=== PATIENT | male | born 1965 | race Caucasian/White ===

== ENCOUNTER 2020-10-12 09:41 | Emergency (ER) | payer OTHER, SELFPAY ==
[2020-10-12] VITALS (12 sets, daily range): BP systolic 125–173; BP diastolic 72–85; PULSE 66–77; RESP 13–18; TEMP 36.4; O2SAT 80–100
--- NOTE | 2020-10-12 09:30 | DI.CT_ITS ---
EXAM: CT RENAL COLIC WO CLINICAL HISTORY: Left flank pain. TECHNIQUE: Imaging Protocol: Axial computed tomography images with coronal and sagittal reformatted images were created and reviewed. COMPARISON: No exams were available for comparison FINDINGS: ABDOMEN: Lung Bases: Normal where visualized. Liver: There is diffuse decreased attenuation of the liver consistent with fatty infiltration. No me asurable mass. The liver is enlarged measuring 20 cm in length. Gallbladder and biliary tract: No radiodense calculus or biliary ductal dilation. Pancreas: Normal density, no abnormal calcifications or inflammatory process. Spleen: The spleen is enlarged measuring 19 cm in length. Kidneys: Normal size, contour and axis.There is a 4 mm stone in the mid left ureter causing mild-to-m oderate hydronephrosis. No masses seen. Adrenal glands: No mass is seen. Lymph nodes: Within normal limits. Abdominal Aorta: Abdominal portion non-dilated. PELVIS: Bladder:Symmetric distention, no gross wall thickening. Bowel: No obstruction or bowel wall thickening. Appendix is unremarkable. There is diverticulosis of the descending and sigmoid colon but no evidence of acute diverticulitis. Peritoneal cavity: No ascites, collection or mesenteric inflammatory response Reproductive organs: Mildly enlarged prostate gland. Bones: Within normal limits. Soft Tissues: Within normal limits. IMPRESSION: 1. 4 mm mid left ureteral stone causing [id number] left hydronephrosis. 2. Hepatosplenomegaly. 3. Fatty infiltration of the liver. RADIATION DOSE DELIVERED: 1,278.05mGy.cm Total DLP DATA REPOSITORY: All CT scans at this facility are submitted to the National Radiology Data Registry (NRDR) Dose Index Registry (DIR) with the [employer] (ACR). RADIATION OPTIMIZATION: All CT scans at this facility use at least one of these dose optimization te chniques: automated exposure control; mA and/or kV adjustment per patient size (includes targeted exa ms where dose is matched to clinical indication); or iterative reconstruction.
--- NOTE | 2020-10-12 09:51 | ED.GENADUL_ITS ---
Discharge Plan Disposition Patient Disposition: HOME Discharge Details Clinical Impression: Kidney stone on left side Primary Care Provider: None,None ED Provider: [facility] Home Meds and New Rx's Prescriptions: New tamsulosin 0.4 mg capsule 0.4 mg PO QHS 7 Days Qty: 7 RF: 0 ketorolac 10 mg tablet 10 mg PO TID PRN5 Days Qty: 15 RF: 0 Discharge Instructions Instructions: Kidney Stones (ED) Additional Instructions: Strain all urine. If you collect the stone may take it with you to urology appointment. You do have a 4 mm kidney stone noted on the left side. This should pass on its own. Take medications as prescribed. Follow-up with urology in 1 to 2 weeks sooner if no better. Follow up with primary care provider in 3-5 days. Return to ED sooner if any worsening or concerns. Increase oral fluids. Please take Tylenol or Ibuprofen with food every 4-6 hours as needed for pain and swelling. Stand Alone Forms: Work Release Referrals: Iron De Guzman MD [ [facility] STAFF PHYSICIAN] - Medical Decision Making 54-year-old male presents to the ED with chief complaint of left flank pain which began approximately 1 week ago. He describes intermittent in nature and has become constant since Wednesday. Positive nausea and dry heaving no vomiting no diarrhea. No fever. He denies any problems urinating. Took ibuprofen approximately 430 this morning. He was sent here from [facility] to rule out kidney stone. He does have a past medical history of asthma, no major surgeries. 1. A left-sided hydroureteronephrosis secondary to an obstructing 4 mm calculus in the left mid ureter 2. Splenomegaly. 3. Mild prostatic enlargement with indentation on the urinary bladder base Discussed results with patient who verbalized understanding. Discussed strict return instructions. Will prescribe Toradol and tamsulosin for pain. HPI General Mode of arrival: ambulatory . Date/Time Provider Initiated Documentation: 10/12/20 09:43 . Limitations to Documentation: no limitations . Information obtained by: patient . HPI Narrative: 54-year-old male presents to the ED with chief complaint of left flank pain which began approximately 1 week ago. He describes intermittent in nature and has become constant since Wednesday. Positive nausea and dry heaving no vomiting no diarrhea. No fever. He denies any problems urinating. Took ibuprofen approximately 430 this morning. He was sent here from [facility] to rule out kidney stone. He does have a past medical history of asthma, no major surgeries. Related Data Home Medications Medication Instructions Recorded Confirmed ketorolac 10 mg PO TID PRN 5 Days #15 tab 10/12/20 tamsulosin 0.4 mg PO QHS 7 Days #7 cap 10/12/20 Previous Rx's Medication Instructions Recorded ketorolac 10 mg PO TID PRN 5 Days #15 tab 10/12/20 tamsulosin 0.4 mg PO QHS 7 Days #7 cap 10/12/20 Allergies Allergy/AdvReac Type Severity Reaction Status Date / Time No Known Allergies Allergy Unverified 10/12/20 09:48 General Stated Complaint: Urinary ALEJANDRO: 3 Review of Systems Narrative: Constitutional: Negative for weight loss, alert and oriented, well groomed, normal body habitus, appears comfortable. HEENT: Denies trauma, headaches, blurry vision, nasal discharge, sore throat, trouble swallowing. Chest: Denies chest pain, palpitations, irregular rhythm, hypertension. Respiratory: Denies Shortness of breath, cough, hemoptysis. GI: Denies abdominal pain, vomiting, diarrhea, constipation. Positive nausea. : Denies rectal bleeding. Positive flank pain and hematuria. Neuro: Denies dizziness, blurry vision, weakness, syncope, headache or facial numbness. Hematologic: Denies easy bruising, intolerance to heat or cold, hair loss. [facility] Social History Smoking/Tobacco Use Status: Never Smoking risk assessment performed?: Yes Alcohol Intake: current Alcohol Intake frequency: holidays/special occasions only Substance use type: does not use Do you feel safe at home: Yes Do you feel safe in your relationship?: Yes Exam Narrative Exam Narrative: Constitutional: Alert and oriented x3. Appears stated age. Normal body habitus. Head: Normocephalic, no trauma. Eyes: Pupils PERRLA, Red reflex noted, EOM's intact. Eyelids symmetrical without lesions, discharge, or swelling. ENT: Bilateral TM's WNL, External ear normal to inspection, no mastoid TTP, swelling, or erythema, Nasal turbinates WNL, no nasal discharge. Normal dentition, Posterior pharynx WNL, no exudate. Chest: RRR, Normal S1, S2, distal pulses intact. Resp: Lungs clear to auscultation bilaterally, no wheezes, rales, or rhonchi. Musculoskeletal: Normal gait, 5/5 strength to all four extremities. Skin: No suspicious rashes or lesions. Capillary refill less than 2 sec. Neurologic: Cranial nerves II-XII intact. Alert and oriented x 3. DTR's intact. Hematologic/Lymphatic: No ecchymosis, no lymphadenopathy. Course Vital Signs Vital signs: Vital Signs Temperature 36.4 C L 10/12/20 09:45 Pulse 77 10/12/20 09:45 Respiratory Rate 16 10/12/20 09:45 Blood Pressure 173/85 H 10/12/20 09:45 Pulse Oximetry 99 10/12/20 09:45 Temperature 36.4 C L 10/12/20 09:45 Temperature Source Skin 10/12/20 09:45 Pulse 77 10/12/20 09:45 Respiratory Rate 16 10/12/20 09:45 Blood Pressure 173/85 H 10/12/20 09:45 Blood Pressure Position Sitting 10/12/20 09:45 Pulse Oximetry 99 10/12/20 09:45 Oxygen Delivery Method Room Air 10/12/20 09:45 Oxygen Flow Rate 0 10/12/20 09:45 Pain Level 4 10/12/20 09:45
[2020-10-12] MEDS: Ondansetron 4 MG/2 ML VIAL IVP (09:55)
[2020-10-12] MEDS: Ketorolac 30 MG/ML VIAL IVP (09:56)
[2020-10-12] MEDS: Normal Saline 1,000 ML 1000 ML IV (09:57)
[2020-10-12 10:15] LABS: Abs Immature Grans 0.02 10^3/uL (0.0-0.06); Absolute Lymphocyte Count 1.01 10^3/uL (1.2-3.4); Absolute Monocyte Count 0.68 10^3/uL (0.1-0.8); Absolute Neutrophil Count 5.11 10^3/uL (1.2-6.7); HCT 41.9 % (40.0-50.0); HGB 13.8 g/dL (13.5-17.5); Immature Grans % 0.3; Lymphocytes % 14.8; MCHC 32.9 % (32.0-36.0); MPV 9.4 fL (8.0-11.0); Neutrophils % 74.9; Nucleated RBC 0 %; Platelet Count 236 10^3/uL (130-400); RBC 4.76 10^6/uL (4.36-5.78); RDW 15.1 % (11.8-14.1); RDW-SD 48.5 fL; WBC 6.82 10^3/uL (4.4-10.8)
[2020-10-12 10:17] LABS: Bilirubin Negative (Negative); Blood Moderate (Negative); Clarity Clear (Clear); Glucose Negative (Negative); Ketones Negative (Negative); Leukocyte Esterase Trace (Negative); Nitrite Negative (Negative)
[2020-10-12 10:23] LABS: Bacteria Few HPF (Negative); C & S Indicated? Yes; Casts Negative LPF (Negative); Crystals Negative HPF (Negative); Epithelial Cells Few HPF (Negative); Mucus Trace (Negative)
[2020-10-12 10:29] LABS: ALT 57 U/L (16-63); AST 22 U/L (15-37); Albumin 4.1 g/dL (3.4-5.0); Alkaline Phosphatase 126 U/L (46-116); Anion Gap 6.6 mmol/L (3-11); BUN 18 mg/dL (7-18); Bilirubin, Total 0.7 mg/dL (0.2-1.0); CO2 30.4 mmol/L (21.0-32.0); CREATININE 1.51 mg/dL (0.70-1.30); Calcium 9.3 mg/dL (8.5-10.1); Chloride 104 mmol/L (98-107); Estimated GFR 48.22 (mL/min/1.73m2); Glucose 83 mg/dL (74-106); Potassium 4.3 mmol/L (3.5-5.1); Sodium 141 mmol/L (136-145); Total Protein 7.6 g/dL (6.4-8.2)
[2020-10-12] MEDS: Tamsulosin 0.4 MG CAPCR PO (10:54)
--- NOTE | 2020-10-12 11:01 | DI.VRAD_ITS ---
PROCEDURE INFORMATION: Exam: CT Abdomen And Pelvis Without Contrast Exam date and time: 10/12/2020 9:46 AM Age: 54 years old Clinical indication: Other: Left flank pain TECHNIQUE: Imaging protocol: Computed tomography of the abdomen and pelvis without contrast. COMPARISON: No relevant prior studies available. FINDINGS: Lungs: The lung bases are clear Liver: Fatty infiltration of the liver. Gallbladder and bile ducts: Normal. No calcified stones. No ductal dilation. Pancreas: Normal. No ductal dilation. Spleen: Splenomegaly (19 cm ) Adrenal glands: Normal. No mass. Kidneys and ureters: A left-sided hydroureteronephrosis secondary to an obstructing 4 mm calculus in the middle 3rd of the left ureter. The right kidney is normal. Stomach and bowel: Unremarkable. No obstruction. No mucosal thickening. Appendix: No evidence of appendicitis. Intraperitoneal space: Unremarkable. No free air. No significant fluid collection. Vasculature: Unremarkable. No abdominal aortic aneurysm. Lymph nodes: Small reactive lymph nodes in both groins. Urinary bladder: Unremarkable as visualized. Reproductive: Mild prostatic enlargement with indentation on the urinary bladder base. Bones/joints: Unremarkable. No acute fracture. Soft tissues: Unremarkable. IMPRESSION: 1. A left-sided hydroureteronephrosis secondary to an obstructing 4 mm calculus in the left mid ureter 2. Splenomegaly. 3. Mild prostatic enlargement with indentation on the urinary bladder base Dictated and Authenticated by: Morales Peralta MD. Ordering:DAVID Funk MD
--- NOTE | 2020-10-12 11:16 | NUR.NOTE ---
[facility]erral [facility]. Copy to Care Management to establish pcp.Nursing Note:
--- NOTE | 2020-10-14 11:18 | PDOC.ERCMPRO ---
- If Service Date Differs Date of service: 10/14/20 Time of Service: 11:18 Care Management Progress Note Jerome is seen in the ED on 10/12/20 for kidney stones. At the request of ED provider, JUAN ALBERTO coordinates a referral to Michelle Kumar NP, on-call provider, of [facility] to assist Jerome is obtaining a follow up visit and in establishing care with a PCP. A referral to [facility] Urology has already been faxed by the ED.
== END 2020-10-12 11:27 | disposition home or self-care (01) ==
PROVIDERS: Emergency Provider Registered Nurse Emergency
DX: N13.2 Hydronephrosis with renal and ureteral calculous obstruction (principal); N13.4 Hydroureter; M54.5 Low back pain
CPT/HCPCS: 36415; 80053; 96361; 96374; 96375; 99284; 74176; 81003; 81015; 85025; 87086; J1885; J2405

== ENCOUNTER 2020-10-21 13:41 | Outpatient (REF) | payer OTHER, SELFPAY ==
[2020-10-21 19:44] LABS: ALT 112 U/L (16-63); AST 55 U/L (15-37); Albumin 4.7 g/dL (3.4-5.0); Alkaline Phosphatase 133 U/L (46-116); Anion Gap 4.7 mmol/L (3-11); BUN 16 mg/dL (7-18); Bilirubin, Total 0.6 mg/dL (0.2-1.0); CO2 31.3 mmol/L (21.0-32.0); CREATININE 1.09 mg/dL (0.70-1.30); Calcium 9.5 mg/dL (8.5-10.1); Calculated LDL 109 mg/dL (<100); Chloride 105 mmol/L (98-107); Cholesterol 173 mg/dL (<200); Glucose 95 mg/dL (74-106); HDL Cholesterol 52 mg/dL (40-60); Potassium 5.4 mmol/L (3.5-5.1); Sodium 141 mmol/L (136-145); Total Protein 7.7 g/dL (6.4-8.2); Triglyceride 60 mg/dL (<150)
== END 2020-10-21 14:01 ==
LOC: NCHCN 13:41
PROVIDERS: Visit Provider Nurse Practitioner Family
DX: Z00.00 Encounter for general adult medical examination without abnormal findings (principal); Z13.220 Encounter for screening for lipoid disorders; Z13.228 Encounter for screening for other metabolic disorders
CPT/HCPCS: 80053; 80061

== ENCOUNTER 2020-10-31 01:30 | Outpatient (CLI) | payer OTHER, SELFPAY ==
--- NOTE | 2020-10-31 | DI.US_ITS ---
EXAM: US ABDOMEN CLINICAL HISTORY: ELEVATED LIVER ENZYMES,R74.8 TECHNIQUE: Ultrasound of complete upper abdomen performed using standard protocol. COMPARISON: No exams were available for comparison FINDINGS: There is no ascites evident. LIVER: Liver is slightly prominent and hyperechoic indicating steatosis. There are no discrete focal hepatic lesions identified on these images. GALLBLADDER/BILIARY: There are no gallstones. No gallbladder wall edema nor pericholecystic fluid. The common hepatic duct isnot dilated, measuring 6mm at the level of cristin hepatis. PANCREAS: There is no evidence of pancreatic mass nor dilatation of the pancreatic duct. SPLEEN: The spleen size is slightly prominent. KIDNEYS:Kidneys exhibit normal size with no evidence of solid mass, calculus, nor hydronephrosis. No cortical cysts evident. ABDOMINAL AORTA: There is no evidence of abdominal aortic aneurysm. IVC: Normal diameter where visualized. IMPRESSION: 1. No evidence of cholelithiasis nor dilatation of the biliary tree. 2. Hepatosplenomegaly. Liver is hyperechoic indicating steatosis. No obvious discrete focal hepati c lesions evident. 3. There is no ascites. DATA REPOSITORY:
== END 2020-10-31 01:50 ==
PROVIDERS: PCP Nurse Practitioner Family; Visit Provider Nurse Practitioner Family
DX: K80.20 Calculus of gallbladder without cholecystitis without obstruction (principal); R16.2 Hepatomegaly with splenomegaly, not elsewhere classified; R74.8 Abnormal levels of other serum enzymes
CPT/HCPCS: 76700

== ENCOUNTER 2020-11-04 02:22 | Outpatient (CLI) | payer OTHER, SELFPAY ==
[2020-11-05 13:21] LABS: COVID-19 RT-PCR UVMMC Result Negative (Negative)
== END 2020-11-04 02:42 ==
PROVIDERS: PCP Nurse Practitioner Family; Visit Provider Internal Medicine Cardiovascular Disease
DX: Z11.52 Encounter for screening for COVID-19 (principal); Z01.810 Encounter for preprocedural cardiovascular examination
CPT/HCPCS: U0003

== ENCOUNTER → 2020-11-07 00:49 | Outpatient (CLI) | payer OTHER, SELFPAY ==
--- NOTE | 2020-11-07 10:30 | DI.NM_ITS ---
APPROVED REPORT Exam: Exercise Treadmill Patient Location: Out-Patient Room/Bed: Stress Nurse: Jennifer Miller RN, Tony Greenberg RN Ordering Provider:YAHAIRA WELLER, Contact Number: [phone] BMI: 38.00 Indications: Intermittent chest pain Medical History Medical History: asthma, HTN, HLD, family hx Cardiac Medications: None. Allergies: NKA Cardiac Risk Factors: HTN, HLD, Asthma, Family hx Previous Cardiac Procedures: None. Pretest Chest Pain Characteristics: None. Exercise History: sedentary Physical Disabilities: None. Lung Sounds: Clear to auscultation Heart Sounds: Regular Stress Test Details Test: Exercise stress testing was performed using a Gregory protocol. Nuclear Acquisition: Rest Tc-99m/Stress Tc-99m 1 day Rest Isotope: Tc-99m Sestamibi. Dose: 15 Date: 11/07/20 Injection Time: 1045 Stress Isotope: Tc-99m Sestamibi. Dose: 46 Date: 11/07/20 Injection Time: 1305 HR Resting HR Supine: 68 bpm Max Heart Rate (APMHR): 164 bpm Resting HR Standin bpm Target HR (85% APMHR): 139 bpm Max HR Achieved: 164 bpm % of APMHR: 100 Recovery HR: 94 bpm HR response to stress: Normal HR response to stress BP Resting BP Supine: 160/90 mmHg Resting BP Standin/88 mmHg Max BP: 178/72 mmHg Recovery BP: 150/78 mmHg BP response to stress: Normal blood pressure response to stress. ECG Resting ECG: Sinus Rhythm Ectopy: PVCs Stress ECG: Sinus Tachycardia ST Change: No significant ST segment changes noted Arrhythmia: PVCs Recovery ECG: Sinus Rhythm Recovery ST Change: No significant ST segment changes noted Recovery Arrhythmia: PVCs Clinical Reason for Termination: Dyspnea Stress Symptoms: Dyspnea Exercise duration: 9 min2 sec Highest Stage Reached: Stage 3: 3.4 mph at 14% grade. Exercise capacity: 10.20 METs Correa Treadmill Score: 8.3 Rate Pressure Product: 14054 Stress ECG Conclusion 1. Resting electrocardiogram was normal 2. Patient exercised on the Gregory protocol and completed a workload of 10.2 METS, 9 minutes and 2 sec onds. 3. Normal heart rate and blood pressure response to exercise. The patient achieved 100% of predicted heart rate for age. There were no symptoms of chest pain 4. Electrocardiographically there was no evidence of myocardial ischemia 5. Rare ventricular ectopic beats were noted Correa Treadmill Score is 8.3 which is Low risk. Stress Test Summary STAGE Time (mins) Speed (mph) Grade (%) HR BP SYMPTOMS METS Supine 68 160/90 Standing 77 152/88 1 3 1.7 10 105 150/82 4.6 2 6 2.5 12 130 162/78 7 3 9 3.4 14 164 170/76 SOB 10.2 1 min recovery 128 178/72 3 min recovery 98 166/74 SOB improved 6 min recovery 94 150/78 Resolved MPI Conclusion Apical thinning, no significant ischemia Radiologist Interpretation Radiologist agrees with Streetcar Operator's Interpretation. Radiologist Interpretation by: Jimmie Peter MD Interpretation Date/Time: 11/07/2020 15:03:38
== END ==
PROVIDERS: PCP Nurse Practitioner Family; Visit Provider Nurse Practitioner Family
DX: R07.9 Chest pain, unspecified (principal); I10 Essential (primary) hypertension; E78.5 Hyperlipidemia, unspecified; J45.909 Unspecified asthma, uncomplicated; Z82.49 Family history of ischemic heart disease and other diseases of the circulatory system
CPT/HCPCS: 78452; 93017

== ENCOUNTER 2021-01-16 05:06 | Outpatient (REF) | payer SELFPAY ==
[2021-01-16 19:44] LABS: ALT 97 U/L (16-63); AST 44 U/L (15-37); Albumin 4.4 g/dL (3.4-5.0); Alkaline Phosphatase 115 U/L (46-116); Bilirubin, Direct 0.1 mg/dL (0.0-0.2); Bilirubin, Total 0.5 mg/dL (0.2-1.0); Total Protein 7.3 g/dL (6.4-8.2)
[2021-01-20 10:51] LABS: HBs Antibody, Quant <3.1 mIU/mL (See Note); Hepatitis B Surface Ab Negative (See Note)
[2021-01-20 10:59] LABS: Hepatitis B Surface Ag Negative (Negative)
[2021-01-20 11:33] LABS: Hepatitis C Ab w Rflx HCV PCR Negative (Negative)
[2021-01-20 11:36] LABS: Hep B Core Antibody Negative (Negative)
== END 2021-01-16 05:07 | disposition home or self-care (01) ==
LOC: NCHCN 05:06
PROVIDERS: PCP Nurse Practitioner Family; Visit Provider Nurse Practitioner Family
DX: I10 Essential (primary) hypertension (principal); R74.8 Abnormal levels of other serum enzymes; Z00.00 Encounter for general adult medical examination without abnormal findings; Z11.59 Encounter for screening for other viral diseases
CPT/HCPCS: 80076; 86704; 86706; 86803; 87340

== ENCOUNTER 2021-07-31 14:02 | Outpatient (REF) | payer SELFPAY ==
[2021-08-02 11:40] LABS: COVID-19 RT-PCR UVMMC Result Negative (Negative)
== END 2021-07-31 14:03 | disposition home or self-care (01) ==
LOC: NCHCN 14:02
PROVIDERS: PCP Nurse Practitioner Family; Visit Provider Family Medicine
DX: Z20.822 Contact with and (suspected) exposure to COVID-19 (principal)
CPT/HCPCS: U0003

== ENCOUNTER 2021-09-16 10:05 | Outpatient (REF) | payer SELFPAY ==
[2021-09-16 20:20] LABS: COVID-19 RT-PCR UVMMC Result Negative (Negative)
== END 2021-09-16 10:06 | disposition home or self-care (01) ==
LOC: NCHCN 10:05
PROVIDERS: PCP Nurse Practitioner Family; Visit Provider Family Medicine
DX: Z20.822 Contact with and (suspected) exposure to COVID-19 (principal)
CPT/HCPCS: U0003

== ENCOUNTER 2022-02-12 01:50 | Outpatient (CLI) | payer OTHER, SELFPAY ==
--- NOTE | 2022-02-12 | DI.MRI_ITS ---
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 Both noninfused and contrast i nfused sequences were performed. IV Contrast injected was 20 cc Dotarem. COMPARISON: No exams were available for comparison FINDINGS: CEREBRAL PARENCHYMA: No evidence of intracranial hemorrhage, mass effect nor shift of midline structu re. No extraaxial fluid collections. Ventricles are not enlarged nor shifted. There is no significant focal signal abnormality in the cerebellar hemispheres nor within the nelson, m idbrain, and thalami. There is no abnormal signal abnormality in the periventricular white matter. There are no ring enhancing lesions in the brain. There is no abnormal meningeal enhancement. DWI: No areas of restricted diffusion to suggest acute ischemic event. SWI: No microhemorrhages evident. PITUITARY GLAND: There is empty sella syndrome. The pituitary gland is confined to the floor of the pituitary fossa. Cavernous sinuses appear unremarkable. FLOW VOIDS: The expected flow void are noted. No evidence of obvious aneurysm nor obvious vascular ma lformation. PARANASAL SINUSES: Post inflammatory retention cysts are seen in the floor both maxillary sinuses, no t associated with fluid levels. Frontal and sphenoid sinuses are clear as are the ethmoidal air cell s. ORBITS: No obvious abnormal findings. IMPRESSION: 1. Empty sella syndrome. The pituitary gland is confined to the floor of the sella turcica. 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 This is often associated with headaches. 2. No other abnormal intracranial findings. No ring enhancing lesions nor abnormal meningeal enhance ment. No brain edema. No abnormal periventricular signal abnormality (as is sometimes seen in chron ic migraines suffers, given the history here). DATA REPOSITORY:
[2022-02-12] MEDS: Gadoterate meglumine 20 ML VIAL IVP (10:35)
[2022-02-12] MEDS: Normal Saline Flush 10 ML SYR IVP (10:36)
== END 2022-02-12 02:10 ==
PROVIDERS: PCP Nurse Practitioner Family; Visit Provider Nurse Practitioner Family
DX: Z01.812 Encounter for preprocedural laboratory examination (principal); G43.109 Migraine with aura, not intractable, without status migrainosus; E23.6 Other disorders of pituitary gland
CPT/HCPCS: 70553; 82565

== ENCOUNTER 2022-06-25 15:44 | Outpatient (REF) | payer OTHER, SELFPAY | END 2022-06-25 15:45 | disposition home or self-care (01) | LOC: NCHCN 15:44 | PROVIDERS: PCP Nurse Practitioner Family; Visit Provider Nurse Practitioner Family | DX: H60.501 Unspecified acute noninfective otitis externa, right ear (principal) | CPT/HCPCS: 87102; 87206; 87070 ==

== ENCOUNTER 2022-07-02 10:10 | Outpatient (REF) | payer OTHER, SELFPAY ==
[2022-07-02 15:49] LABS: ALT 63 U/L (16-63); AST 33 U/L (15-37); Albumin 3.8 g/dL (3.4-5.0); Alkaline Phosphatase 159 U/L (46-116); Anion Gap 12.9 mmol/L (3-11); BUN 19 mg/dL (7-18); Bilirubin, Total 0.5 mg/dL (0.2-1.0); CO2 25.1 mmol/L (21.0-32.0); CREATININE 1.2 mg/dL (0.70-1.30); Chloride 103 mmol/L (98-107); Estimated GFR 70.53 (mL/min/1.73m2); Glucose 208 mg/dL (74-106); Potassium 3.9 mmol/L (3.5-5.1); Sodium 141 mmol/L (136-145); Total Protein 7.8 g/dL (6.4-8.2)
== END 2022-07-02 10:11 | disposition home or self-care (01) ==
LOC: NCHCN 10:10
PROVIDERS: PCP Nurse Practitioner Family; Visit Provider Nurse Practitioner Family
DX: U07.1 COVID-19 (principal); I10 Essential (primary) hypertension; R74.8 Abnormal levels of other serum enzymes
CPT/HCPCS: 80053

== ENCOUNTER 2023-03-15 13:39 | Outpatient (REF) | payer MEDICAID, SELFPAY ==
[2023-03-15 17:46] LABS: ALT 129 U/L (16-63); AST 92 U/L (15-37); Alkaline Phosphatase 148 U/L (46-116); Anion Gap 8.7 mmol/L (3-11); BUN 15 mg/dL (7-18); Bilirubin, Total 0.7 mg/dL (0.2-1.0); CO2 27.3 mmol/L (21.0-32.0); CREATININE 0.9 mg/dL (0.70-1.30); Calcium 9.4 mg/dL (8.5-10.1); Calculated LDL 124 mg/dL (<100); Chloride 104 mmol/L (98-107); Cholesterol 189 mg/dL (<200); Glucose 175 mg/dL (74-106); HDL Cholesterol 53 mg/dL (40-60); Magnesium 1.9 mg/dL (1.8-2.4); Potassium 4.3 mmol/L (3.5-5.1); Sodium 140 mmol/L (136-145); TSH (W/Ref FT4) 3.77 uIU/mL (0.36-3.74); Total Protein 7.4 g/dL (6.4-8.2); Triglyceride 61 mg/dL (<150); Vitamin B12 541 pg/mL (193-986)
[2023-03-15 18:27] LABS: FREE T4 0.75 ng/dL (0.76-1.46)
[2023-03-16 11:41] LABS: Hemoglobin A1C 7.1 % (<5.7)
== END 2023-03-15 13:40 | disposition home or self-care (01) ==
LOC: NCHCN 13:39
PROVIDERS: PCP Nurse Practitioner Family; Visit Provider Nurse Practitioner Family
DX: K76.0 Fatty (change of) liver, not elsewhere classified (principal); I10 Essential (primary) hypertension; R73.09 Other abnormal glucose; R94.6 Abnormal results of thyroid function studies; Z79.899 Other long term (current) drug therapy
CPT/HCPCS: 80053; 80061; 82607; 83036; 83735; 84439; 84443

== ENCOUNTER 2023-03-29 17:22 | Outpatient (REF) | payer MEDICAID, SELFPAY ==
[2023-03-29 19:50] LABS: FREE T4 0.78 ng/dL (0.76-1.46); TSH 3.54 uIU/mL (0.36-3.74)
== END 2023-03-29 17:23 | disposition home or self-care (01) ==
LOC: NCHCN 17:22
PROVIDERS: PCP Nurse Practitioner Family; Visit Provider Nurse Practitioner Family
DX: R73.09 Other abnormal glucose (principal); Z83.49 Family history of other endocrine, nutritional and metabolic diseases; I10 Essential (primary) hypertension
CPT/HCPCS: 83036; 84439; 84443

== ENCOUNTER 2023-07-21 13:49 | Outpatient (REF) | payer MEDICAID, SELFPAY ==
[2023-07-21 16:25] LABS: Abs Immature Grans 0.06 10^3/uL (0.0-0.06); Absolute Basophil Count 0.01 10^3/uL (0.0-0.2); Absolute Lymphocyte Count 0.56 10^3/uL (1.2-3.4); Absolute Monocyte Count 0.56 10^3/uL (0.1-0.8); Absolute Neutrophil Count 6.58 10^3/uL (1.2-6.7); Basophils % 0.1; HCT 45.3 % (40.0-50.0); HGB 15.3 g/dL (13.5-17.5); Immature Grans % 0.8; Lymphocytes % 7.2; MCH 28.2 pg (27.0-33.0); MCHC 33.8 % (32.0-36.0); MCV 83 fL (80-95); MPV 9.9 fL (8.0-11.0); Monocytes % 7.2; Neutrophils % 84.7; Platelet Count 245 10^3/uL (130-400); RBC 5.43 10^6/uL (4.36-5.78); WBC 7.77 10^3/uL (4.4-10.8)
[2023-07-21 16:40] LABS: ALT 75 U/L (16-63); AST 36 U/L (15-37); Albumin 3.8 g/dL (3.4-5.0); Alkaline Phosphatase 178 U/L (46-116); BUN 20 mg/dL (7-18); CREATININE 1.2 mg/dL (0.70-1.30); Calcium 9.7 mg/dL (8.5-10.1); Chloride 98 mmol/L (98-107); Glucose 113 mg/dL (74-106); Potassium 3.7 mmol/L (3.5-5.1); Sodium 135 mmol/L (136-145)
[2023-07-21 23:19] LABS: PSA, Screening 17.3 ng/mL (<=3.5)
== END 2023-07-21 13:50 | disposition home or self-care (01) ==
LOC: NCHCN 13:49
PROVIDERS: PCP Nurse Practitioner Family; Visit Provider Physician Assistant Medical
DX: R31.9 Hematuria, unspecified (principal); Z12.5 Encounter for screening for malignant neoplasm of prostate; R79.89 Other specified abnormal findings of blood chemistry; R82.79 Other abnormal findings on microbiological examination of urine
CPT/HCPCS: 80053; 84153; 87077; 85025; 87086; 87186

== ENCOUNTER 2023-08-15 09:37 | Emergency (ER) | payer MEDICAID, SELFPAY ==
[2023-08-15] VITALS (18 sets, daily range): BP systolic 152–167; BP diastolic 59–80; PULSE 105–126; RESP 11–26; TEMP 39.3; O2SAT 92–97
[2023-08-15 10:13] LABS: Lactate 1.4 mmol/L (0.6-1.4)
--- NOTE | 2023-08-15 10:15 | DI.CT_ITS ---
Exam(s) CT RENAL COLIC WO EXAM: CT RENAL COLIC WO CLINICAL HISTORY: flank pain. TECHNIQUE: Imaging Protocol: Axial computed tomography images with coronal and sagittal reformatted images were created and reviewed CONTRAST MATERIAL: Intravenous: none Oral: None COMPARISON: CT CT RENAL COLIC WO from 10/12/2020 FINDINGS: VISUALIZED LUNG BASES: No nodules nor pleural effusions evident. ABDOMEN: There is no ascites. LIVER: Hepatic steatosis and hepatomegaly again noted. GALLBLADDER/BILIARY: No obvious gallbladder pathology. CBD is not dilated. PANCREAS: No evidence of pancreatic mass nor dilatation of the pancreatic duct. SPLEEN: Splenomegaly again noted. The cephalocaudal length of the spleen is 15.5 cm. Similar to pre vious. ADRENALS: There are no significant adrenal masses. KIDNEYS:Small benign cyst in the posterior cortex of the left kidney. Usually present calculus in th e left ureter seen on the CT scan of 2019 no longer seen. Tiny 1 millimeter nonobstructive left kidn ey calculus. ABDOMINAL AORTA: Abdominal aorta is not enlarged. LYMPH NODES: There is no retroperitoneal nor paraaortic adenopathy. ABDOMINAL WALL: No evidence of significant anterior abdominal wall nor inguinal hernia. GI: Fluid-filled mildly distended proximal and mid small bowel loops suspicious for element of enteri tis. PELVIS: LYMPH NODES: There is no intrapelvic nor inguinal adenopathy. GI: No evidence of appendicitis.There is diverticulosis of the descending colon and sigmoid. No obvi ous acute diverticulitis. URINARY BLADDER: No calculi nor obvious masses evident REPRODUCTIVE: Prostate slide is mildly prominent. Seminal vesicles unremarkable. OSSEOUS: No significant osseous lesions. No fractures. IMPRESSION: 1. Compared to the prior CT scan of 10/12/2020 there is hepatic steatosis and hepatosplenomegaly agai n noted. No ascites. 2. There is a tiny punctate 1 mm calculus in left kidney, nonobstructive. There are no obstructing c alculi in the ureters, as was present in the left ureter on the prior CT scan of September 2020. Pros dooley mildly enlarged. 3. There is diverticulosis throughout the colon.. This is most extensive in the sigmoid. There is n o obvious acute diverticulitis. No appendicitis 4. there are fluid-filled mildly dilated jejunal loops-also more distal XXXX mid small bowel loops. Probable enteritis pattern RADIATION DOSE DELIVERED: Total DLP DATA REPOSITORY: All CT scans at this facility are submitted to the National Radiology Data Registry (NRDR) Dose Index Registry (DIR) with the [employer] (ACR). RADIATION OPTIMIZATION: All CT scans at this facility use at least one of these dose optimization te chniques: automated exposure control; mA and/or kV adjustment per patient size (includes targeted exa ms where dose is matched to clinical indication); or iterative reconstruction.
[2023-08-15] MEDS: Normal Saline 1,000 ML 1000 ML IV (10:20)
[2023-08-15 10:23] LABS: Bilirubin Negative (Negative); Blood Trace-intact (Negative); Clarity Clear (Clear); Glucose Negative (Negative); Ketones Negative (Negative); Leukocyte Esterase Moderate (Negative); Nitrite Positive (Negative); pH 7.5 (5-8)
[2023-08-15 10:23] LABS: Abs Immature Grans 0.05 10^3/uL (0.0-0.06); Absolute Basophil Count 0.02 10^3/uL (0.0-0.2); Absolute Lymphocyte Count 0.75 10^3/uL (1.2-3.4); Absolute Monocyte Count 0.78 10^3/uL (0.1-0.8); Absolute Neutrophil Count 10.71 10^3/uL (1.2-6.7); Basophils % 0.2; HCT 45.2 % (40.0-50.0); HGB 14.9 g/dL (13.5-17.5); Immature Grans % 0.4; Lymphocytes % 6.1; MCH 27.9 pg (27.0-33.0); MCV 85 fL (80-95); MPV 8.6 fL (8.0-11.0); Monocytes % 6.3; Platelet Count 224 10^3/uL (130-400); RBC 5.35 10^6/uL (4.36-5.78); RDW 14.8 % (11.8-14.1); RDW-SD 45.6 fL; WBC 12.31 10^3/uL (4.4-10.8)
[2023-08-15 10:30] LABS: Bacteria Many HPF (Negative); C & S Indicated? Yes; Casts Negative LPF (Negative); Crystals Negative HPF (Negative); Epithelial Cells Rare HPF (Negative); Mucus Negative (Negative); WBC 20-50 HPF (0-5)
[2023-08-15 10:35] LABS: ALT 57 U/L (16-63); AST 23 U/L (15-37); Albumin 3.9 g/dL (3.4-5.0); Alkaline Phosphatase 159 U/L (46-116); Anion Gap 10.8 mmol/L (3-11); BUN 11 mg/dL (7-18); Bilirubin, Total 1.4 mg/dL (0.2-1.0); CO2 28.2 mmol/L (21.0-32.0); CREATININE 1.1 mg/dL (0.70-1.30); Calcium 9.6 mg/dL (8.5-10.1); Chloride 100 mmol/L (98-107); Estimated GFR 77.81 (mL/min/1.73m2); Glucose 147 mg/dL (74-106); Potassium 4.2 mmol/L (3.5-5.1); Sodium 139 mmol/L (136-145); Total Protein 7.8 g/dL (6.4-8.2)
[2023-08-15] MEDS: Ondansetron 4 MG/2 ML VIAL IVP (10:35)
[2023-08-15] MEDS: Ketorolac 15 MG/ML VIAL IVP (10:35)
--- NOTE | 2023-08-15 10:48 | ED.GENADUL_ITS ---
Discharge Plan Disposition Patient Disposition: Home Discharge Details Clinical Impression: Acute pyelonephritis Primary Care Provider: Laury Heaton ED Provider: Vito Hughes Home Meds and New Rx's Prescriptions: New levofloxacin 750 mg tablet 750 mg PO DAILY 5 Days Qty: 5 0RF ondansetron 4 mg tablet,disintegrating 4 mg PO Q8H PRN (Reason: nausea and vomiting) Qty: 10 0RF Continued albuterol sulfate [ProAir HFA] 90 mcg/actuation HFA aerosol inhaler 2 puff inhalation DAILY albuterol sulfate 2.5 mg/0.5 mL solution for nebulization 2.5 mg inhalation Q20M Rx Instructions: for up to 3 doses montelukast [Singulair] 10 mg tablet 10 mg PO DAILY budesonide-formoterol [Symbicort] 160-4.5 mcg/actuation HFA aerosol inhaler 2 puff inhalation BID lisinopril 10 mg tablet 10 mg PO DAILY omeprazole 20 mg capsule,delayed release(DR/EC) 20 mg PO DAILY Ozempic 0.25 mg or 0.5 mg (2 mg/3 mL) pen injector 0.25 mg subcut QWEEK Rx Instructions: for 4 weeks ondansetron 4 mg tablet,disintegrating 4 mg PO Q8H Discharge Instructions Instructions: Kidney Infection (ED) Additional Instructions: It is important that you follow-up with your primary care provider given that you had enlarged prostate, enlarged spleen, and a question of diverticulitis but this is not clinically consistent with your symptoms today. At this time I do feel that you have a urinary/kidney infection and please take the antibiotics as prescribed and for the full course of medication. If you have any new or significant worsening of symptoms return to the emergency department for reassessment otherwise follow-up as discussed. Referrals: Laury Heaton [Primary Care Provider] - 3 days Discharge Data Discharge Date/Time-TO BE ENTERED AT DEPARTURE: 08/15/23 12:26 Medical Decision Making Patient presenting to the emergency department for chief complaint of urinary symptoms with fever and flank pain. Patient reports he had this a couple weeks to a month ago and was given antibiotics for this and had improvement of symptoms. Then over the past 24 hours he has noticed a significant worsening of symptoms and return to what they had previously been. Patient does state some nausea but no vomiting, denies abdominal pain and denies any blood in urine. Physical exam shows mild suprapubic tenderness, tachycardia, and review of vital signs does show that patient is febrile but no other acute findings noted. Patient has past medical history of diabetes, hypertension, asthma, GERD. Given recent UTI with return of symptoms and fever I am concerned about possible pyelonephritis versus infected kidney stone which she does have history of. Given this we will perform labs and CT imaging. Given fever will start patient on ceftriaxone and will treat patient's pain and nausea. Reviewed patient's labs and patient does have noticed leukocytosis, CMP does show slightly elevated glucose, bilirubin, and alk phos otherwise nondiagnostic. Urinalysis is positive for nitrites and leukocyte Estrace with 20-50 WBCs consistent with infection. Patient is negative for COVID flu RSV. CT imaging reviewed and did show some splenomegaly , increased prostate size and diverticulosis with question of this being diverticulitis. Honestly physical exam shows no consistent clinical findings with the CT findings noted. I still feel that patient has pyelonephritis. We will treat with Levaquin given that patient was reportedly just on antibiotics for urinary tract infection and review of urine culture shows monsalve sensitivity. Will refer patient back to primary care provider given that he is feeling significantly well after interventions in the emergency department and is tolerating p.o. After discussion of diagnosis and plan of care patient has no further needs, questions, or concerns and states clear understanding to return to the emergency department for any worsening symptoms. This documentation was generated using [employer] dictation system, please disregard any oddities of phrase or misspellings. Imaging Data Radiologic Study: Attestation: I personally reviewed and interpreted this imaging study as follows: Imaging: CT Scan Radiologist's impression: Exam(s) PROCEDURE INFORMATION: Exam: CT Abdomen And Pelvis Without Contrast Exam date and time: 08/15/2023 10:49 AM Age: 57 years old Clinical indication: Other: Left flank pain; Patient HX: RT flank pain TECHNIQUE: Imaging protocol: Computed tomography of the abdomen and pelvis without contrast. COMPARISON: CT RENAL COLIC WO 10/12/2020 10:39 AM FINDINGS: Lungs: 4.8 mm nodule in the lingula image 4. Liver: Lobulated liver consistent with cirrhosis. Gallbladder and bile ducts: Normal. No calcified stones. No ductal dilation. Pancreas: Normal. No ductal dilation. Spleen: Splenomegaly 15 cm.. Adrenal glands: Normal. No mass. Kidneys and ureters: Subcentimeter low attenuation area in the left kidney is too small for characterization. There is no evidence of renal or ureteral calcifications. Stomach and bowel: Diverticulosis and Bowel wall thickening along the rectosigmoid colon. Mild pericolonic inflammatory changes. No evidence of perforation or abscess formation or bleeding. Findings consistent with acute diverticulitis. Appendix: Normal appendix Intraperitoneal space: Unremarkable. No free air. No significant fluid collection. Vasculature: Unremarkable. No abdominal aortic aneurysm. Lymph nodes: Unremarkable. No enlarged lymph nodes. Urinary bladder: Unremarkable as visualized. Reproductive: The prostate is enlarged, greater than 5 cm. Recommend urology consult. Bones/joints: Unremarkable. No acute fracture. Soft tissues: Unremarkable. IMPRESSION: 1. Diverticulosis and Bowel wall thickening along the rectosigmoid colon. Mild pericolonic inflammatory changes. No evidence of perforation or abscess formation or bleeding. Findings consistent with acute diverticulitis. 2. 4.8 mm nodule in the lingula image 4. 3. Lobulated liver consistent with cirrhosis. 4. The prostate is enlarged, greater than 5 cm. Recommend urology consult. 5. Splenomegaly 15 cm.. Differential diagnosis of splenomegaly is lymphoma/leukemia, mononucleosis, hemolytic anemia, portal hypertension. Lab Data Lab results reviewed: Yes I reviewed the patient's lab results. HPI General Mode of arrival: ambulatory . Date/Time Provider Initiated Documentation: 08/15/23 09:54 . Limitations to Documentation: no limitations . Information obtained by: patient and RN notes reviewed . History of Present Illness 57 year old M presents to the emergency department with the chief complaint of Fever, burning urination, flank pain, described as moderate and similar to prior episodes, and is localized to the back. Patient reports no radiation. Patient started experiencing this day(s) (1) and it has been constant. No relieving factors improve symptom(s), No exacerbating factors reported . Patient did receive the following treatments prior to arrival, other (Acetaminophen) Related Data Home Medications Medication Instructions Recorded Confirmed albuterol sulfate 90 mcg/actuation 2 puff inhalation DAILY 11/04/20 08/15/23 aerosol inhaler (ProAir HFA) albuterol sulfate 2.5 mg/0.5 mL 2.5 mg inhalation Q20M 07/10/22 08/15/23 solution for nebulization budesonide-formoterol HFA 160 2 puff inhalation BID 07/10/22 08/15/23 mcg-4.5 mcg/actuation aerosol inhaler (Symbicort) lisinopril 10 mg tablet 10 mg PO DAILY 07/10/22 08/15/23 montelukast 10 mg tablet 10 mg PO DAILY 07/10/22 08/15/23 (Singulair) omeprazole 20 mg capsule,delayed 20 mg PO DAILY 07/10/22 08/15/23 release ondansetron 4 mg disintegrating 4 mg PO Q8H 07/23/23 08/15/23 tablet semaglutide 0.25 mg or 0.5 mg (2 0.25 mg subcut QWEEK 07/23/23 08/15/23 mg/3 mL) subcutaneous pen injector (Ozempic) levofloxacin 750 mg tablet 750 mg PO DAILY 5 days #5 tabs 08/15/23 ondansetron 4 mg disintegrating 4 mg PO Q8H PRN nausea and 08/15/23 tablet vomiting #10 tabs Previous Rx's Medication Instructions Recorded levofloxacin 750 mg tablet 750 mg PO DAILY 5 days #5 tabs 08/15/23 ondansetron 4 mg disintegrating 4 mg PO Q8H PRN nausea and 08/15/23 tablet vomiting #10 tabs Allergies Allergy/AdvReac Type Severity Reaction Status Date / Time No Known Allergies Allergy Verified 08/15/23 10:22 General Stated Complaint: Urinary ALEJANDRO: 3 Review of Systems Constitutional Constitutional: Denies chills, Denies fever(s) and Reports poor appetite Cardiovascular Cardiovascular: Denies chest pain and Denies dyspnea Respiratory Respiratory: Denies cough and Denies dyspnea Gastrointestinal Gastrointestinal: Reports as per HPI, Denies melena, Denies change in bowel habits, Denies constipation, Denies diarrhea, Reports nausea and Denies vomiting Genitourinary Genitourinary: Reports as per HPI, Denies hematuria, Reports difficulty urinating, Reports dysuria, Reports flank pain, Reports urinary hesitancy, Denies urinary incontinence and Reports urinary urgency Integumentary/Breasts Skin/Breast: Denies rash PFSH All Active Problems (Updated 08/15/23 @ 12:20 by Vito Hughes NP) Acute pyelonephritis (Acute) Asthma (Chronic) Chest pain (Acute) Fatty liver disease, nonalcoholic (Acute) Type 2 diabetes mellitus (Acute) Hematuria (Acute) Elevated PSA (Acute) Acute serous otitis media of right ear without rupture (Acute) Flank pain (Acute) Medical History Asthma, moderate persistent Intermittent chest pain Pain of left heel GERD (gastroesophageal reflux disease) Elevated liver enzymes Adjustment disorder with depressed mood HTN (hypertension) Neck pain Low back pain Cerumen impaction Migraine headache with aura Sleep disturbance Abnormal brain MRI Empty sella syndrome Acute otitis externa of right ear COVID-19 Social History Smoking/Tobacco Use Status: Never Smoking risk assessment performed?: Yes Alcohol Intake: current Alcohol Intake frequency: holidays/special occasions only Substance use type: does not use Do you feel safe at home: Yes Do you feel safe in your relationship?: Yes Exam Const General: cooperative and no acute distress Orientation: alert, awake and oriented x3 Resp Effort & Inspection: normal respiratory effort and able to speak in complete sentences Auscultation: clear to auscultation bilaterally Cardio Rate: tachycardic Rhythm: regular rhythm Heart Sounds: S1 normal and S2 normal GI Palpation: soft, not firm, no guarding and tender suprapubicly Auscultation: normal bowel sounds Back/Spine/Pelvis Back: no CVA tenderness Neuro General: patient alert, patient awake and patient oriented x3 Extrem General: capillary refill normal Course Vital Signs Vital signs: Vital Signs Temperature 39.3 C H 08/15/23 09:44 Pulse 126 H 08/15/23 09:44 Respiratory Rate 18 08/15/23 09:44 Blood Pressure 167/80 H 08/15/23 09:44 Pulse Oximetry 96 08/15/23 09:44 Temperature 39.3 C H 08/15/23 09:44 Temperature Source Oral 08/15/23 09:44 Pulse 126 H 08/15/23 09:44 Respiratory Rate 18 08/15/23 09:44 Respiratory Effort Normal, Non-Labored 08/15/23 10:09 Blood Pressure 167/80 H 08/15/23 09:44 Blood Pressure Position Sitting 08/15/23 09:44 Pulse Oximetry 96 08/15/23 09:44 Oxygen Delivery Method Room Air 08/15/23 09:44 Oxygen Flow Rate 0 08/15/23 09:44 Pain Level 5 08/15/23 10:35 Lab/Test Results Lab/Test Results: 08/15/23 09:54 Urine - Reflex from Ua Urine Culture - Pending 08/15/23 10:04 Blood Blood Culture - Pending 08/15/23 09:57 Blood Blood Culture - Pending Laboratory Tests Range/Units 08/15/23 08/15/23 09:54 10:04 WBC (4.4-10.8) 10^3/uL 12.31 H RBC (4.36-5.78) 10^6/uL 5.35 Hgb (13.5-17.5) g/dL 14.9 Hct (40.0-50.0) % 45.2 MCV (80-95) fL 85 MCH (27.0-33.0) pg 27.9 MCHC (32.0-36.0) % 33.0 RDW (11.8-14.1) % 14.8 H Plt Count (130-400) 10^3/uL 224 MPV (8.0-11.0) fL 8.6 Immature Gran % 0.4 Neutrophils % 87.0 Lymphocytes % 6.1 Monocytes % 6.3 Eosinophils % 0.0 Basophils % 0.2 Nucleated RBC % (0.0-0.3) % 0.0 Absolute Neutrophils (1.2-6.7) 10^3/uL 10.71 H Absolute Lymphocytes (1.2-3.4) 10^3/uL 0.75 L Absolute Monocytes (0.1-0.8) 10^3/uL 0.78 Absolute Eosinophils (0.0-0.7) 10^3/uL 0.00 Absolute Basophils (0.0-0.2) 10^3/uL 0.02 VBG Lactate (0.6-1.4) mmol/L 1.4 Urine Color (Yellow) Yellow Urine Clarity (Clear) Clear Urine pH (5-8) 7.5 Ur Specific [place] (1.005-1.025) 1.020 Urine Protein (Negative) mg/dL Trace H Urine Ketones (Negative) mg/dL Negative Urine Blood (Negative) Trace-intact H Urine Nitrite (Negative) Positive H Urine Bilirubin (Negative) Negative Urine Urobilinogen (Up to 0.2) mg/dL 1.0 H Ur Leukocyte Esterase (Negative) Moderate H Urine RBC (0-2) HPF 3-5 H Urine WBC (0-5) HPF 20-50 H Ur Epithelial Cells (Negative) HPF Rare Urine Crystals (Negative) HPF Negative Urine Bacteria (Negative) HPF Many Urine Casts (Negative) LPF Negative Urine Mucus (Negative) Negative Ur Culture Indicated? Yes Urine Glucose (Negative) mg/dL Negative
[2023-08-15] MEDS: cefTRIAXone 1 GM/50 ML BAG IVPB (11:00)
[2023-08-15 11:03] LABS: COVID-19 PCR Negative (Negative); Influenza A PCR Negative (Negative); Influenza B PCR Negative (Negative); RSV PCR Negative (Negative)
[2023-08-15 11:09] LABS: Source Nasopharynx
--- NOTE | 2023-08-15 11:29 | DI.VRAD_ITS ---
PROCEDURE INFORMATION: Exam: CT Abdomen And Pelvis Without Contrast Exam date and time: 08/15/2023 10:49 AM Age: 57 years old Clinical indication: Other: Left flank pain; Patient HX: RT flank pain TECHNIQUE: Imaging protocol: Computed tomography of the abdomen and pelvis without contrast. COMPARISON: CT RENAL COLIC WO 10/12/2020 10:39 AM FINDINGS: Lungs: 4.8 mm nodule in the lingula image 4. Liver: Lobulated liver consistent with cirrhosis. Gallbladder and bile ducts: Normal. No calcified stones. No ductal dilation. Pancreas: Normal. No ductal dilation. Spleen: Splenomegaly 15 cm.. Adrenal glands: Normal. No mass. Kidneys and ureters: Subcentimeter low attenuation area in the left kidney is too small for characterization. There is no evidence of renal or ureteral calcifications. Stomach and bowel: Diverticulosis and Bowel wall thickening along the rectosigmoid colon. Mild pericolonic inflammatory changes. No evidence of perforation or abscess formation or bleeding. Findings consistent with acute diverticulitis. Appendix: Normal appendix Intraperitoneal space: Unremarkable. No free air. No significant fluid collection. Vasculature: Unremarkable. No abdominal aortic aneurysm. Lymph nodes: Unremarkable. No enlarged lymph nodes. Urinary bladder: Unremarkable as visualized. Reproductive: The prostate is enlarged, greater than 5 cm. Recommend urology consult. Bones/joints: Unremarkable. No acute fracture. Soft tissues: Unremarkable. IMPRESSION: 1. Diverticulosis and Bowel wall thickening along the rectosigmoid colon. Mild pericolonic inflammatory changes. No evidence of perforation or abscess formation or bleeding. Findings consistent with acute diverticulitis. 2. 4.8 mm nodule in the lingula image 4. 3. Lobulated liver consistent with cirrhosis. 4. The prostate is enlarged, greater than 5 cm. Recommend urology consult. 5. Splenomegaly 15 cm.. Differential diagnosis of splenomegaly is lymphoma/leukemia, mononucleosis, hemolytic anemia, portal hypertension. Dictated and Authenticated by: Chester Fields MD. Ordering:ELENA Padron MD
--- NOTE | 2023-08-15 12:28 | NUR.NOTE ---
Referral faxed for Pt to see her Primary Care Provider for recehck of Pyelenephritis within 3 days.
--- NOTE | 2023-08-19 07:47 | NUR.NOTE ---
Received critical value from the Lab Urine Culture ESBL ecoli is growing Reported to Dr Jeffers [id number] on 08/19/23
--- NOTE | 2023-08-19 07:58 | ED.FU.B_ITS ---
Follow Up Plan: Received urine culture from date of service 08/15/2023 growing E. coli greater than 100,000 colonies, multidrug-resistant ESBL including resistance to prescribed Levaquin. I called the patient and discussed the results with him. He notes he is feeling a little bit better than when he presented to the emergency department. Patient does note he had a urinary tract infection a few weeks ago that was treated with Levaquin. I suspect patient incompletely treated infection and now has resistant UTI with pyelonephritis. Plan to discontinue Levaquin and start Bactrim DS. I did discuss the risks of Bactrim treatment with use of lisinopril. Patient was encouraged to talk with his doctor about antihypertensive options. He has an appoint with his physician today and he was encouraged to keep this appointment. New prescription called to [place] [facility].
--- NOTE | 2023-08-21 09:05 | NUR.NOTE ---
Culture result found on clipboard. Accessed pt chart to determine if the culture had been dealt with. Dr. Jeffers noted that he called in a new RX. Nursing Note:
== END 2023-08-15 12:26 | disposition home or self-care (01) ==
PROVIDERS: Emergency Provider Nurse Practitioner Family; PCP Nurse Practitioner Family
DX: N10 Acute pyelonephritis (principal); N13.2 Hydronephrosis with renal and ureteral calculous obstruction; I10 Essential (primary) hypertension; Z20.822 Contact with and (suspected) exposure to COVID-19
CPT/HCPCS: 36415; 80053; 87040; 87077; 87637; 96361; 96365; 96375; 99285; 74176; 81003; 81015; 83605; 85025; 87086; 87186; 99284; J0696; J1885; J2405

== ENCOUNTER 2023-09-23 01:59 | Outpatient (CLI) | payer MEDICAID, SELFPAY ==
[2023-09-23 17:27] LABS: PSA, Diagnostic 0.8 ng/mL (<=3.5)
== END 2023-09-23 02:00 | disposition home or self-care (01) ==
LOC: LBO 01:59
PROVIDERS: PCP Nurse Practitioner Family; Visit Provider Nurse Practitioner Gerontology
DX: R97.20 Elevated prostate specific antigen [PSA] (principal)
CPT/HCPCS: 36415; 84153

== ENCOUNTER 2023-12-06 08:38 | Emergency (ER) | payer MEDICAID, SELFPAY ==
[2023-12-06 08:41] VITALS: BP 164/76; PULSE 111; RESP 20; TEMP 37; O2SAT 96
[2023-12-06 09:08] LABS: Abs Immature Grans 0.06 10^3/uL (0.0-0.06); Absolute Basophil Count 0.01 10^3/uL (0.0-0.2); Absolute Lymphocyte Count 0.62 10^3/uL (1.2-3.4); Absolute Monocyte Count 0.56 10^3/uL (0.1-0.8); Absolute Neutrophil Count 5.71 10^3/uL (1.2-6.7); Basophils % 0.1; HCT 44.3 % (40.0-50.0); HGB 14.7 g/dL (13.5-17.5); Immature Grans % 0.9; Lymphocytes % 8.9; MCH 27.5 pg (27.0-33.0); MCHC 33.2 % (32.0-36.0); MCV 83 fL (80-95); MPV 9.4 fL (8.0-11.0); Neutrophils % 82.1; Platelet Count 272 10^3/uL (130-400); RBC 5.34 10^6/uL (4.36-5.78); RDW 14.7 % (11.8-14.1); WBC 6.96 10^3/uL (4.4-10.8)
--- NOTE | 2023-12-06 09:14 | ED.GENADUL_ITS ---
HPI General Mode of arrival: ambulatory . Date/Time Provider Initiated Documentation: 12/06/23 08:50 . Limitations to Documentation: no limitations . Information obtained by: patient, RN notes reviewed and old records reviewed . HPI Narrative: 58-year-old male presents to the ER with a chief complaint of productive cough since Wednesday, right upper quadrant abdominal pain vomiting dysuria since Wednesday. Also reports some vomiting which began today. He was sent here by his PCP for further evaluation. He did present with blood and urine samples that they warren at PCP appointment. He does have a past medical history of hypertension, asthma GERD, sleep apnea, elevated PSA, obesity, type 2 diabetes elevated liver enzymes low back pain, insomnia. He he denies any use of alcohol or cigarettes. He does present slightly tachycardic mildly tachypneic, clammy hypertensive with a temp of 37.0. He has not taken anything for pain or fever this morning. He has had a negative rapid COVID flu swab at home. Related Data Home Medications Medication Instructions Recorded Confirmed albuterol sulfate 90 mcg/actuation 2 puff inhalation DAILY 11/04/20 12/06/23 aerosol inhaler (ProAir HFA) albuterol sulfate 2.5 mg/0.5 mL 2.5 mg inhalation Q20M 07/10/22 12/06/23 solution for nebulization budesonide-formoterol HFA 160 2 puff inhalation BID 07/10/22 12/06/23 mcg-4.5 mcg/actuation aerosol inhaler (Symbicort) lisinopril 10 mg tablet 10 mg PO DAILY 07/10/22 12/06/23 montelukast 10 mg tablet 10 mg PO DAILY 07/10/22 12/06/23 (Singulair) omeprazole 20 mg capsule,delayed 20 mg PO DAILY 07/10/22 12/06/23 release semaglutide 0.25 mg or 0.5 mg (2 0.25 mg subcut QWEEK 07/23/23 12/06/23 mg/3 mL) subcutaneous pen injector (Ozempic) doxycycline hyclate 100 mg tablet 100 mg PO BID 10 days #20 tabs 12/06/23 fosfomycin tromethamine 3 gram 1 packet PO ONCE UTI #1 ea 12/06/23 oral packet molnupiravir 200 mg capsule (EUA) 800 mg (4 x 200 mg) PO Q12H 5 days 12/06/23 #40 caps Previous Rx's Medication Instructions Recorded doxycycline hyclate 100 mg tablet 100 mg PO BID 10 days #20 tabs 12/06/23 fosfomycin tromethamine 3 gram 1 packet PO ONCE UTI #1 ea 12/06/23 oral packet molnupiravir 200 mg capsule (EUA) 800 mg (4 x 200 mg) PO Q12H 5 days 12/06/23 #40 caps Allergies Allergy/AdvReac Type Severity Reaction Status Date / Time No Known Allergies Allergy Verified 12/06/23 08:45 General Stated Complaint: GenMedical ALEJANDRO: 3 Review of Systems All systems reviewed & are unremarkable except as noted in HPI and below Cardiovascular Cardiovascular: Reports dyspnea Respiratory Respiratory: Reports as per HPI, Reports cough, Reports pain with cough, Reports dyspnea and Reports wheezing Gastrointestinal Gastrointestinal: Reports as per HPI, Reports abdominal pain, Reports nausea and Reports vomiting Genitourinary Genitourinary: Reports flank pain Allergic/Immunologic Allergic/Immunologic: Reports wheezing Exam Narrative Exam Narrative: Constitutional: Alert and oriented x3. Appears stated age. Normal body habitus. Head: Normocephalic, no trauma. Eyes: Pupils PERRL, Red reflex noted, EOM's intact. Eyelids symmetrical without lesions, discharge, or swelling. ENT: Bilateral TM's WNL, External ear normal to inspection, no mastoid TTP, swelling, or erythema, Nasal turbinates WNL, no nasal discharge. Normal dentition, Posterior pharynx WNL, no exudate. Chest: RRR, Normal S1, S2, distal pulses intact. Resp: Lungs rhonchorous with auscultation to all lobes. Abdomen: Soft, non-distended, Normoactive bowel sounds all 4 quads.Tender with palpation to RUQ. C/O Lower lumbar pressure. Musculoskeletal: Normal gait, 5/5 strength to all four extremities. Lower lumbar pain. Skin: No suspicious rashes or lesions. Capillary refill less than 2 sec. Neurologic: Cranial nerves II-XII intact. Alert and oriented x 3. Motor: No deficits noted. Sensory: Intact bilaterally all 4 extremities. Reflexes: DTR's intact bilaterally.. Hematologic/Lymphatic: No ecchymosis, no lymphadenopathy. Course Vital Signs Vital signs: Vital Signs Temperature 37.0 C 12/06/23 08:41 Pulse 111 H 12/06/23 08:41 Respiratory Rate 20 12/06/23 08:41 Blood Pressure 164/76 H 12/06/23 08:41 Pulse Oximetry 96 12/06/23 08:41 Temperature 37.0 C 12/06/23 08:41 Temperature Source Temporal Artery Scan 12/06/23 08:41 Pulse 111 H 12/06/23 08:41 Respiratory Rate 20 12/06/23 08:41 Respiratory Effort Normal, Non-Labored 12/06/23 08:46 Blood Pressure 164/76 H 12/06/23 08:41 Blood Pressure Position Sitting 12/06/23 08:41 Pulse Oximetry 96 12/06/23 08:41 Oxygen Delivery Method Room Air 12/06/23 08:41 Oxygen Flow Rate 0 12/06/23 08:41 Lab/Test Results Lab/Test Results: 12/06/23 09:12 Blood Blood Culture - Pending 12/06/23 09:12 Blood Blood Culture - Pending Laboratory Tests Range/Units 12/06/23 07:40 WBC (4.4-10.8) 10^3/uL 6.96 RBC (4.36-5.78) 10^6/uL 5.34 Hgb (13.5-17.5) g/dL 14.7 Hct (40.0-50.0) % 44.3 MCV (80-95) fL 83 MCH (27.0-33.0) pg 27.5 MCHC (32.0-36.0) % 33.2 RDW (11.8-14.1) % 14.7 H Plt Count (130-400) 10^3/uL 272 MPV (8.0-11.0) fL 9.4 Immature Gran % 0.9 Neutrophils % 82.1 Lymphocytes % 8.9 Monocytes % 8.0 Eosinophils % 0.0 Basophils % 0.1 Nucleated RBC % (0.0-0.3) % 0.0 Absolute Neutrophils (1.2-6.7) 10^3/uL 5.71 Absolute Lymphocytes (1.2-3.4) 10^3/uL 0.62 L Absolute Monocytes (0.1-0.8) 10^3/uL 0.56 Absolute Eosinophils (0.0-0.7) 10^3/uL 0.00 Absolute Basophils (0.0-0.2) 10^3/uL 0.01 Medical Decision Making 58-year-old male presents to the ER with a chief complaint of productive cough since Wednesday, right upper quadrant abdominal pain vomiting dysuria since Wednesday. Also reports some vomiting which began today. He was sent here by his PCP for further evaluation. He did present with blood and urine samples that they warren at PCP appointment. He does have a past medical history of hypertension, asthma GERD, sleep apnea, elevated PSA, obesity, type 2 diabetes elevated liver enzymes low back pain, insomnia. He he denies any use of alcohol or cigarettes. He does present slightly tachycardic mildly tachypneic, clammy hypertensive with a temp of 37.0. He has not taken anything for pain or fever this morning. He has had a negative rapid COVID flu swab at home. Workup ordered including CBC CMP, lipase, blood cultures x 2, hepatitis panel, Fluvid swab, urinalysis blood cultures x 2, CT chest abdomen pelvis. Liter of normal saline Zofran and morphine. Differential diagnosis includes but not limited to pneumonia, COVID, flu, cholecystitis, hepatitis, pyelonephritis, UTI, appendicitis. COVID-positive on a rapid swab, CBC within normal limits, anion gap 12.0, glucose 171 liver enzymes are elevated, Fluvid is pending. CT changed to chest with contrast rule out PE abdomen/pelvis with contrast. Dexamethasone 6 mg IV ordered. Albuterol inhaler. Rocephin 1 g IV piggyback ordered. At this time patient's O2 sat is 88-91% on room air at rest, Will give albuterol inhaler. Patient reevaluation and to discuss CT results with him he verbalizes understanding I also spoke with his on the phone. Of note his rapid POC swab was positive for COVID the Fluvid swab was negative. His clinical presentation is consistent with COVID pneumonia. I also discussed the right upper lobe mass versus infiltrate that needs to be followed with him he verbalized understanding. He is being followed by urology for elevated PSA. He also has some cystitis he is still complaining of some lower back pain. He did receive 2 mg of morphine which has worn off. He describes pressure in that area. Ibuprofen ordered. I do recommend admission at this time due to COVID- pneumonia, cystitis and multiple infections. O2 sat did drop down to 88% earlier. At this time he is currently 96% on room air. 1128: Hospitalist paige. Discussed case with hospitalist team at this time they recommend fosfomycin in 3 days, room air road test trial which patient passed with O2 sat of 96% with ambulation. I will place patient on doxycycline twice daily x 10 days, molnupiravir antiviral for COVID, and fosfomycin in 3 days. He did receive the first dose here. I did discuss this with patient and family who verbalized understanding and are in agreement with the plan. Liter of normal saline ordered heart rate has decreased. They would prefer to be discharged home. I will encourage strict follow-up strict return instructions and close follow-up with PCP. This text was generated using [employer] system, please disregard any oddities of phrase or misspellings. Medical Records Medical records reviewed: Yes I reviewed the patient's medical records. Imaging Data Radiologic Study: Imaging: CT Scan Radiologist's impression: COMPARISON: CT CT RENAL COLIC WO from 08/15/2023 FINDINGS: CHEST: Pulmonary Arteries: No evidence of filling defects to suggest pulmonary emboli. Tracheobronchial tree: No bronchiectasis or mucus plugging. Mediastinum and Sarah: No dominant adenopathy or fluid collection. Pulmonary parenchyma: Patchy infiltrates right lower lobe. Minimal ground-glass opacities left lower lobe. 16 x 13 by 12 millimeter mass versus focal consolidation right upper lobe. Pleura: No effusion. No pneumothorax. Heart: The heart is notdilated. No coronary artery calcifications are seen. Aorta: Thoracic aorta non-dilated. Bones: Degenerative changes in the spine. Tubes, Catheters, and Lines: None. Soft tissues: Mild bilateral gynecomastia. ABDOMEN and PELVIS: Liver: Enlarged. Moderate hepatic steatosis. Normal density. No suspicious measurable mass. Portal, Superior Mesenteric, and Splenic Veins: Unremarkable. Gallbladder and Biliary Tract: No radiodense calculus. No biliary dilatation. Pancreas: Normal density, no abnormal calcifications or inflammatory process. Spleen: Enlarged at 15 cm in length. Adrenals: No masses seen. Kidneys: Normal size, contour and axis. No radiodense stones. No obstructive uropathy. No masses seen. Vasculature: Abdominal aorta non-dilated. Bowel: Diverticulosis. No evidence of diverticulitis. No small-bowel obstruction or bowel wall thickening. Appendix is unremarkable. Peritoneal Cavity: No ascites, collection or mesenteric inflammatory response. Lymph Nodes: Within normal limits. Soft Tissues: Tiny fatty containing umbilical hernia. Bladder: Mild bladder wall thickening.. Reproductive Organs: Unremarkable as visualized. Bones: Unremarkable for age.. IMPRESSION: 1. No evidence of pulmonary embolism. 16 millimeter mass versus focal consolidation right upper lobe. Bibasilar ground-glass infiltrates. 2. Mild bladder wall thickening which could indicate cystitis. Clinical correlation is recommended. 3. Findings called to Blessing Doll, ER provider. Lab Data Lab results reviewed: Yes I reviewed the patient's lab results. Labs: 12/06/23 10:50 Blood Blood Culture - Pending 12/06/23 10:23 Urine - Reflex from Ua Urine Culture - Pending 12/06/23 09:20 Blood Blood Culture - Pending Laboratory Tests Range/Units 12/06/23 12/06/23 12/06/23 07:40 09:25 10:23 WBC (4.4-10.8) 10^3/uL 6.96 RBC (4.36-5.78) 10^6/uL 5.34 Hgb (13.5-17.5) g/dL 14.7 Hct (40.0-50.0) % 44.3 MCV (80-95) fL 83 MCH (27.0-33.0) pg 27.5 MCHC (32.0-36.0) % 33.2 RDW (11.8-14.1) % 14.7 H Plt Count (130-400) 10^3/uL 272 MPV (8.0-11.0) fL 9.4 Immature Gran % 0.9 Neutrophils % 82.1 Lymphocytes % 8.9 Monocytes % 8.0 Eosinophils % 0.0 Basophils % 0.1 Nucleated RBC % (0.0-0.3) % 0.0 Absolute Neutrophils (1.2-6.7) 10^3/uL 5.71 Absolute Lymphocytes (1.2-3.4) 10^3/uL 0.62 L Absolute Monocytes (0.1-0.8) 10^3/uL 0.56 Absolute Eosinophils (0.0-0.7) 10^3/uL 0.00 Absolute Basophils (0.0-0.2) 10^3/uL 0.01 Sodium (136-145) mmol/L 138 Potassium (3.5-5.1) mmol/L 4.6 Chloride (98-107) mmol/L 101 Carbon Dioxide (21.0-32.0) mmol/L 25.0 Anion Gap (3-11) mmol/L 12.0 H BUN (7-18) mg/dL 8 Creatinine (0.70-1.30) mg/dL 1.1 Est GFR (CKD-EPI 2020) (mL/min/1.73m2) 77.33 Glucose (74-106) mg/dL 171 H Calcium (8.5-10.1) mg/dL 9.5 Magnesium (1.8-2.4) mg/dL 1.9 Total Bilirubin (0.2-1.0) mg/dL 0.8 AST (15-37) U/L 44 H ALT (16-63) U/L 92 H Alkaline Phosphatase (46-116) U/L 170 H Total Protein (6.4-8.2) g/dL 7.6 Albumin (3.4-5.0) g/dL 3.6 Lipase (16-77) U/L 23 Urine Color (Yellow) Yellow Urine Clarity (Clear) Sl Cloudy Urine pH (5-8) 6.5 Ur Specific [place] (1.005-1.025) 1.010 Urine Protein (Negative) mg/dL 100 H Urine Ketones (Negative) mg/dL Negative Urine Blood (Negative) Large H Urine Nitrite (Negative) Positive H Urine Bilirubin (Negative) Negative Urine Urobilinogen (Up to 0.2) mg/dL 1.0 H Ur Leukocyte Esterase (Negative) Large H Urine RBC (0-2) HPF 10-20 H Urine WBC (0-5) HPF >50 H Ur Epithelial Cells Not Applicable Urine Crystals Not Applicable Urine Bacteria (Negative) HPF Moderate Urine Casts (Negative) LPF Comment Urine Mucus Not Applicable Ur Culture Indicated? Yes Urine Glucose (Negative) mg/dL Negative COVID-19 Source Nasopharynx SARS-CoV-2 (PCR) (Negative) Negative Influenza Type A (PCR) (Negative) Negative Influenza Type B (PCR) (Negative) Negative RSV (PCR) (Negative) Negative Quality:SDOH Health Related Social Needs: No Data to Display PFSH All Active Problems (Updated 12/06/23 @ 12:35 by Blessing Adair NP) Acute UTI (Acute) Pneumonia due to 2019 novel coronavirus (Acute) Asthma (Chronic) Chest pain (Acute) Fatty liver disease, nonalcoholic (Acute) Type 2 diabetes mellitus (Acute) Hematuria (Acute) Elevated PSA (Acute) Acute serous otitis media of right ear without rupture (Acute) Flank pain (Acute) Medical History Asthma, moderate persistent Intermittent chest pain Pain of left heel GERD (gastroesophageal reflux disease) Elevated liver enzymes Adjustment disorder with depressed mood HTN (hypertension) Neck pain Low back pain Cerumen impaction Migraine headache with aura Sleep disturbance Abnormal brain MRI Empty sella syndrome Acute otitis externa of right ear COVID-19 Social History Smoking/Tobacco Use Status: Never Smoking risk assessment performed?: Yes Alcohol Intake: current Alcohol Intake frequency: holidays/special occasions only Drug use: Never Substance use type: does not use Do you feel safe at home: Yes Do you feel safe in your relationship?: Yes PAWSS Have you Been Recently Intoxicated or Drunk Within the Last 30 days?: No Have you Ever Experienced Previous Episodes of Alcohol Withdrawal?: No Have you ever Experienced Withdrawal Seizures?: No Have you ever Experienced Delirium Tremens(DT)s?: No Have you ever undergone Alcohol Rehabilitation Treatment (i.e, inpt ot outpatient treatment programs)?: No Have you ever Experienced Blackouts?: No Have you ever Combined Alcohol with other Downers within the last 90 days?: No Have you ever Combined Alcohol with any other Substance of Abuse during the last 90 days?: No Positive Blood Alcohol level on Presentation? [PCS.BAL]: No Evidence of Increased Autonomic Activity (i.e. HR>120, tremor, sweating, agitation, nausea)?: No Result: 0 Discharge Plan Disposition Patient Disposition: Home Condition: Improving Discharge Details Clinical Impression: Pneumonia due to 2019 novel coronavirus, Acute UTI Primary Care Provider: Laury Heaton ED Provider: Blessing Adair Home Meds and New Rx's Prescriptions: New molnupiravir 200 mg capsule 800 mg PO Q12H 5 Days Qty: 40 0RF fosfomycin tromethamine 3 gram packet 1 packet PO ONCE Qty: 1 0RF Rx Instructions: Take in 3 days (on 12-09-23) doxycycline hyclate 100 mg tablet 100 mg PO BID 10 Days Qty: 20 0RF No Action albuterol sulfate [ProAir HFA] 90 mcg/actuation HFA aerosol inhaler 2 puff inhalation DAILY albuterol sulfate 2.5 mg/0.5 mL solution for nebulization 2.5 mg inhalation Q20M Rx Instructions: for up to 3 doses montelukast [Singulair] 10 mg tablet 10 mg PO DAILY budesonide-formoterol [Symbicort] 160-4.5 mcg/actuation HFA aerosol inhaler 2 puff inhalation BID lisinopril 10 mg tablet 10 mg PO DAILY omeprazole 20 mg capsule,delayed release(DR/EC) 20 mg PO DAILY Ozempic 0.25 mg or 0.5 mg (2 mg/3 mL) pen injector 0.25 mg subcut QWEEK Rx Instructions: for 4 weeks Discharge Instructions Instructions: Urinary Tract Infection in Men (ED), Pneumonia (ED), COVID-19 (Coronavirus Disease 2019) (ED) Additional Instructions: Continue to use the albuterol inhaler 1 or 2 puffs every 4-6 hours as needed for shortness of breath and wheezing. Continue to take the rest of your medications as prescribed. Take the antiviral for COVID twice daily for the next 5 days, take 4 tablets of that twice daily. In 3 days please take the other antibiotic called fosfomycin for urinary tract infection Continue take the doxycycline with yogurt or probiotic twice daily for the next 10 days. Follow up with primary care provider in 3-5 days. Return to ED sooner if any worsening or concerns. Increase oral fluids. Please take Tylenol or Ibuprofen with food every 4-6 hours as needed for pain and swelling. Consider purchasing a oximeter she can get [id number] to monitor your oxygen saturation. Please return to the ER if it drops below 90% for greater than 10 minutes. Referrals: Laury Heaton [Primary Care Provider] - 5 days
[2023-12-06 09:26] VITALS: BP 164/76; PULSE 111; RESP 20; TEMP 37; O2SAT 96
[2023-12-06 09:26] LABS: ALT 92 U/L (16-63); AST 44 U/L (15-37); Albumin 3.6 g/dL (3.4-5.0); Alkaline Phosphatase 170 U/L (46-116); BUN 8 mg/dL (7-18); Bilirubin, Total 0.8 mg/dL (0.2-1.0); CREATININE 1.1 mg/dL (0.70-1.30); Calcium 9.5 mg/dL (8.5-10.1); Chloride 101 mmol/L (98-107); Estimated GFR 77.33 (mL/min/1.73m2); Glucose 171 mg/dL (74-106); Lipase 23 U/L (16-77); Magnesium 1.9 mg/dL (1.8-2.4); Potassium 4.6 mmol/L (3.5-5.1); Sodium 138 mmol/L (136-145); Total Protein 7.6 g/dL (6.4-8.2)
[2023-12-06] MEDS: Lidocaine 5% Patch 1 PATCH TP (09:28)
[2023-12-06] MEDS: MORPHine 10 MG/ML VIAL 2 MG IVP (09:37)
[2023-12-06] MEDS: Ondansetron 4 MG/2 ML VIAL IVP (09:37)
[2023-12-06] MEDS: Normal Saline 1,000 ML 1000 ML IV ×2 (09:37→11:50)
--- NOTE | 2023-12-06 09:45 | DI.CT_ITS ---
Exam(s) CT CHEST PE ABD PELVIS W EXAM: CT CHEST PE ABD PELVIS W CLINICAL HISTORY: Covid Positive Cough, SOB, Abd pain. TECHNIQUE: Imaging Protocol: Axial CT angiography was performed with multi-slice acquisition and mu lti-planar and/or 3D reconstructions. CONTRAST MATERIAL: Intravenous: Omnipaque 350 Contrast volume:100 ml COMPARISON: CT CT RENAL COLIC WO from 08/15/2023 FINDINGS: CHEST: Pulmonary Arteries: No evidence of filling defects to suggest pulmonary emboli. Tracheobronchial tree: No bronchiectasis or mucus plugging. Mediastinum and Sarah: No dominant adenopathy or fluid collection. Pulmonary parenchyma: Patchy infiltrates right lower lobe. Minimal ground-glass opacities left lower lobe. 16 x 13 by 12 millimeter mass versus focal consolidation right upper lobe. Pleura: No effusion. No pneumothorax. Heart: The heart is notdilated. No coronary artery calcifications are seen. Aorta: Thoracic aorta non-dilated. Bones: Degenerative changes in the spine. Tubes, Catheters, and Lines: None. Soft tissues: Mild bilateral gynecomastia. ABDOMEN and PELVIS: Liver: Enlarged. Moderate hepatic steatosis. Normal density. No suspicious measurable mass. Portal, Superior Mesenteric, and Splenic Veins: Unremarkable. Gallbladder and Biliary Tract: No radiodense calculus. No biliary dilatation. Pancreas: Normal density, no abnormal calcifications or inflammatory process. Spleen: Enlarged at 15 cm in length. Adrenals: No masses seen. Kidneys: Normal size, contour and axis. No radiodense stones. No obstructive uropathy. No masses seen . Vasculature: Abdominal aorta non-dilated. Bowel: Diverticulosis. No evidence of diverticulitis. No small-bowel obstruction or bowel wall thicke riki. Appendix is unremarkable. Peritoneal Cavity: No ascites, collection or mesenteric inflammatory response. Lymph Nodes: Within normal limits. Soft Tissues: Tiny fatty containing umbilical hernia. Bladder: Mild bladder wall thickening.. Reproductive Organs: Unremarkable as visualized. Bones: Unremarkable for age.. IMPRESSION: 1. No evidence of pulmonary embolism. 16 millimeter mass versus focal consolidation right upper lobe. Bibasilar ground-glass infiltrates. 2. Mild bladder wall thickening which could indicate cystitis. Clinical correlation is recommended. 3. Findings called to Blessing Doll, [facility] provider. Unexpected findings RADIATION DOSE DELIVERED: 1,978.64mGy.cm Total DLP DATA REPOSITORY: All CT scans at this facility are submitted to the National Radiology Data Registry (NRDR) Dose Index Registry (DIR) with the [employer] (ACR). RADIATION OPTIMIZATION: All CT scans at this facility use at least one of these dose optimization te chniques: automated exposure control; mA and/or kV adjustment per patient size (includes targeted exa ms where dose is matched to clinical indication); or iterative reconstruction.
[2023-12-06] MEDS: Normal Saline - Diluent 50 ML VIAL IJ (09:55)
[2023-12-06] MEDS: Omnipaque 350 MG/ML 500 ML BTL-Imaging package IJ (09:56)
[2023-12-06 10:05] LABS: COVID-19 PCR Negative (Negative); Influenza A PCR Negative (Negative); Influenza B PCR Negative (Negative); RSV PCR Negative (Negative)
[2023-12-06 10:06] LABS: Source Nasopharynx
[2023-12-06 10:28] LABS: Bilirubin Negative (Negative); Blood Large (Negative); Clarity Sl Cloudy (Clear); Glucose Negative (Negative); Ketones Negative (Negative); Leukocyte Esterase Large (Negative); Nitrite Positive (Negative); pH 6.5 (5-8)
[2023-12-06 10:49] LABS: Bacteria Moderate HPF (Negative); WBC >50 HPF (0-5)
[2023-12-06 10:50] LABS: C & S Indicated? Yes
[2023-12-06] MEDS: cefTRIAXone 1 GM/50 ML BAG IVPB (10:53)
[2023-12-06] MEDS: Albuterol HFA 8 GM 60 PUFF INH IH (10:59)
[2023-12-06] MEDS: Dexamethasone 10 MG/ML VIAL 6 MG IVP (11:00)
[2023-12-06] MEDS: DOXYCYCLINE 100 MG in Normal Saline 100 ML IVPB (11:49)
[2023-12-06] MEDS: Ibuprofen 600 MG TAB PO (11:50)
[2023-12-06 11:53] LABS: Lactate 0.7 MMOL/l (0.9-1.7)
[2023-12-06] MEDS: Fosfomycin Tromethamine 3 GM PACKET PO (12:19)
[2023-12-06 12:44] LABS: Procalcitonin 0.3 ng/mL
[2023-12-06 12:45] VITALS: BP 138/73; PULSE 103; RESP 19; RESP 23; TEMP 37.2; O2SAT 96
[2023-12-06 19:02] LABS: Hepatitis A Antibody IgM Negative (Negative); Hepatitis B Core Antibody Negative (Negative); Hepatitis B surface Ag Negative (Negative); Hepatitis C Ab w Rflx HCV PCR Negative (Negative)
== END 2023-12-06 12:58 | disposition home or self-care (01) ==
PROVIDERS: Emergency Provider Registered Nurse Emergency; PCP Nurse Practitioner Family
DX: N39.0 Urinary tract infection, site not specified (principal); J18.9 Pneumonia, unspecified organism; U07.1 COVID-19; I10 Essential (primary) hypertension; E11.9 Type 2 diabetes mellitus without complications; Z11.52 Encounter for screening for COVID-19; Z79.84 Long term (current) use of oral hypoglycemic drugs
CPT/HCPCS: 36415; 71275; 74177; 80053; 83690; 84145; 86704; 86709; 86803; 87040; 87077; 87340; 87637; 96365; 96367; 96375; 99285; 81003; 81015; 83605; 83735; 85025; 87086; 99284; J0696; J1100; J2270; J2405; J3490

== ENCOUNTER 2023-12-06 09:02 | Outpatient (REF) | payer MEDICAID, SELFPAY ==
[2023-12-06 10:42] LABS: Hemoglobin A1C 7.3 % (<5.7); Vitamin D 25 Total 16.4 ng/mL (30-100)
== END 2023-12-06 09:03 | disposition home or self-care (01) ==
LOC: NCHCN 09:02
PROVIDERS: PCP Nurse Practitioner Family; Visit Provider Nurse Practitioner Family
DX: N39.0 Urinary tract infection, site not specified (principal); R50.9 Fever, unspecified; E55.9 Vitamin D deficiency, unspecified; E11.9 Type 2 diabetes mellitus without complications
CPT/HCPCS: 82306; 86704; 86709; 86803; 87077; 87340; 83036; 87086; 87186

== ENCOUNTER → 2024-01-19 04:08 | Outpatient (CLI) | payer MEDICAID, SELFPAY ==
--- NOTE | 2024-01-19 | DI.CT_ITS ---
Exam(s) CT CHEST W EXAM: CT CHEST W CLINICAL HISTORY: R93.89 Abn findings on diagnostic imaging of other specified body structure TECHNIQUE: Imaging Protocol: Axial computed tomography images with coronal and sagittal reformatted images were created and reviewed CONTRAST MATERIAL: Intravenous: Omnipaque 350 Contrast volume:70 ml. COMPARISON: CT CT CHEST PE ABD PELVIS W from 12/06/2023 FINDINGS: Pulmonary parenchyma: Decreased size of previously noted density in the posterior right upper lobe. It has a less rounded appearance. The now measures 10 x 10 x 16 millimeters. No new abnormalities. Tracheobronchial tree: No bronchiectasis or mucous plugging. Mediastinum and Sarah: No dominant adenopathy or fluid collection. Pleura: No effusion. No pneumothorax. Heart: The heart is not dilated. No coronary artery calcifications are seen. Aorta: Thoracic aorta non-dilated. Mild atherosclerotic changes. Upper abdomen: Enlarged fatty liver. Enlarged spleen. Bones: Degenerative changes in the spine. Soft tissues: Bilateral gynecomastia. IMPRESSION: Mild decrease in size of previously noted right upper lobe opacity. Further close interval follow-up recommended. RADIATION DOSE DELIVERED: Total DLP DATA REPOSITORY: All CT scans at this facility are submitted to the National Radiology Data Registry (NRDR) Dose Index Registry (DIR) with the [employer] (ACR). RADIATION OPTIMIZATION: All CT scans at this facility use at least one of these dose optimization te chniques: automated exposure control; mA and/or kV adjustment per patient size (includes targeted exa ms where dose is matched to clinical indication); or iterative reconstruction.
[2024-01-19] MEDS: Omnipaque 350 MG/ML 100 ML BTL IJ (09:44)
== END ==
PROVIDERS: PCP Nurse Practitioner Family; Visit Provider Nurse Practitioner Family
DX: R93.89 Abnormal findings on diagnostic imaging of other specified body structures (principal); R91.8 Other nonspecific abnormal finding of lung field; R16.2 Hepatomegaly with splenomegaly, not elsewhere classified
CPT/HCPCS: 71260; J3490

== ENCOUNTER → 2024-04-05 00:14 | Outpatient (CLI) | payer MEDICAID, SELFPAY ==
--- NOTE | 2024-04-05 | DI.CT_ITS ---
Exam(s) CT CHEST W EXAM: CT CHEST W CLINICAL HISTORY: Abnl findings on DI of other specified body structures, R93.89. TECHNIQUE: Multi planar reconstructions were performed. CONTRAST MATERIAL: Omnipaque 350; 75 cc COMPARISON: CT CT CHEST W from 01/19/2024 FINDINGS: CHEST: LUNGS: The previously described right upper lobe nodular infiltrate appears unchanged from 01/19/2024 .. There are no new additional infiltrates nor nodules in the right lung. There is a small fissure related 3 millimeter nodule laterally in the left lung, unchanged. No new findings in either lung an d no pleural effusions. No findings in the trachea and mainstem bronchi. There is no bronchiectasis . MEDIASTINUM: There is no hilar nor mediastinal adenopathy. Visualized thyroid unremarkable. CARDIAC: Heart size is normal. There is no pericardial effusion.Caliber of the thoracic aorta is wit hin normal limits. VISUALIZED UPPER ABDOMEN:There are no significant adrenal masses. Splenomegaly again noted. Hepatic steatosis again noted. OSSEOUS: No significant osseous lesions.No fractures.. IMPRESSION: 1. Compared to the prior CT scan of 01/19/2024 there is no significant change in the size and configu ration of the previously described nodular infiltrate in the right upper lobe. There are no new righ t lung findings 2. Small benign-appearing 3 millimeter fissure related nodule in the lateral aspect of the opposite-l eft lung is also unchanged. 3. No pleural effusions nor significant adenopathy. Splenomegaly and hepatic steatosis again noted. RADIATION DOSE DELIVERED: 702.67mGy.cm Total DLP DATA REPOSITORY: All CT scans at this facility are submitted to the National Radiology Data Registry (NRDR) Dose Index Registry (DIR) with the [employer] (ACR). RADIATION OPTIMIZATION: All CT scans at this facility use at least one of these dose optimization te chniques: automated exposure control; mA and/or kV adjustment per patient size (includes targeted exa ms where dose is matched to clinical indication); or iterative reconstruction.
[2024-04-05 08:49] LABS: CREATININE 1.2 mg/dL (0.70-1.30); Estimated GFR 69.66 (mL/min/1.73m2)
[2024-04-05] MEDS: Omnipaque 350 MG/ML 500 ML BTL-Imaging package IJ (09:00)
[2024-04-05] MEDS: Normal Saline - Diluent 50 ML VIAL IJ (09:01)
== END ==
PROVIDERS: PCP Nurse Practitioner Family; Visit Provider Physician Assistant Medical
DX: K76.0 Fatty (change of) liver, not elsewhere classified (principal)
CPT/HCPCS: 71260; 82565

== ENCOUNTER 2025-06-11 18:37 | Outpatient (REF) | payer MEDICAID, SELFPAY ==
[2025-06-11 19:28] LABS: ALT 32 U/L (16-63); AST 17 U/L (15-37); Albumin 3.8 g/dL (3.4-5.0); Alkaline Phosphatase 161 U/L (46-116); Anion Gap 10.3 mmol/L (3-11); BUN 16 mg/dL (7-18); Bilirubin, Total 0.4 mg/dL (0.2-1.0); CO2 26.7 mmol/L (21.0-32.0); Calcium 9.3 mg/dL (8.5-10.1); Chloride 107 mmol/L (98-107); Estimated GFR 101.32 (mL/min/1.73m2); Glucose 99 mg/dL (74-106); Potassium 4.4 mmol/L (3.5-5.1); Sodium 144 mmol/L (136-145); Total Protein 6.7 g/dL (6.4-8.2)
[2025-06-11 19:42] LABS: Hemoglobin A1C 5.2 % (<5.7)
== END 2025-06-11 18:38 | disposition home or self-care (01) ==
LOC: NCHCN 18:37
PROVIDERS: PCP Nurse Practitioner Family; Visit Provider Nurse Practitioner Family
DX: I10 Essential (primary) hypertension (principal); E11.9 Type 2 diabetes mellitus without complications
CPT/HCPCS: 80053; 83036